=== PATIENT | female | born 1935 | race Caucasian/White ===

== ENCOUNTER 2016-04-01 09:06 | Inpatient (IN) | payer OTHER, MEDICARE ==
[2016-03-08 11:36] VITALS: BMI 28.0
--- NOTE | 2016-03-08 12:09 | PAT Medication Instructions ---
Service Date Mar 08, 2016. Current Home Medication List Acetaminophen (Tylenol Arthritis Ext Rel), 650 MG PO Q8H Albuterol (Proair Hfa), 2 PUFFS INH Q4 PRN for asthma Calcium Carbonate-Vitamin D (Oscal 500/200 D-3), 2 TABLETS PO QAM Cholecalciferol (Vitamin D-3), 1,000 UNIT PO QAM Cyanocobalamin (Vitamin B-12 1000 Mcg), 1,000 MCG PO QAM Levothyroxine Sodium (Levothyroxine Sodium), 1 TAB PO QAM Losartan Potassium (Cozaar), 25 MG PO QAM Metoprolol Tartrate (Metoprolol Tartrate), 25 MG PO BID Multiple Vitamin (Multivitamins), 1 CAP PO QAM Probiotic Product (Probiotic), 1 CAP PO QAM Psyllium (Metamucil Powder), 1 PACK PO DAILY Ranitidine (Zantac), 150 MG PO LUNCH Medication Instructions For Your Scheduled Surgery - Hold the following medications the morning of surgery: Calcium Carbonate-Vitamin D (Oscal 500/200 D-3), 2 TABLETS PO QAM Cholecalciferol (Vitamin D-3), 1,000 UNIT PO QAM Cyanocobalamin (Vitamin B-12 1000 Mcg), 1,000 MCG PO QAM Losartan Potassium (Cozaar), 25 MG PO QAM Multiple Vitamin (Multivitamins), 1 CAP PO QAM Probiotic Product (Probiotic), 1 CAP PO QAM Psyllium (Metamucil Powder), 1 PACK PO DAILY - Take the following medications the morning of surgery with a sip of water OTHERWISE NOTHING TO EAT OR DRINK AFTER MIDNIGHT: Acetaminophen (Tylenol Arthritis Ext Rel), 650 MG PO Q8H (may take if needed up to 4 hours prior to surgery) Albuterol (Proair Hfa), 2 PUFFS INH Q4 PRN for asthma (use if needed; BRING TO HOSPITAL) Metoprolol Tartrate (Metoprolol Tartrate), 25 MG PO BID Levothyroxine Sodium (Levothyroxine Sodium), 1 TAB PO QAM Ranitidine (Zantac), 150 MG PO LUNCH - Take the following medications as scheduled the night before surgery: Acetaminophen (Tylenol Arthritis Ext Rel), 650 MG PO Q8H Albuterol (Proair Hfa), 2 PUFFS INH Q4 PRN for asthma Metoprolol Tartrate (Metoprolol Tartrate), 25 MG PO BID If you have any questions please call us at [phone] (Gela Montalvo PA-C ) or [phone] or [phone]
[2016-03-08 12:51] LABS: URINE APPEARANCE CLEAR (CLEAR); URINE BILIRUBIN NEG (NEG); URINE COLOR YELLOW; URINE NITRITE NEG (NEG); UROBILINOGEN NEG (NEG)
[2016-03-08 12:52] LABS: MANUAL MICROSCOPIC REQUIRED? NO; REVIEW REQ? NO
[2016-03-08 13:08] LABS: PROTHROMBIN TIME (PATIENT) 10.3 SECONDS (9.0-12.0)
[2016-03-08 13:12] LABS: BASO % 0.6 %; BASO ABS # 0.03 K/uL (0-0.2); COMPLETE YES; EOS % 1.5 %; HEMATOCRIT 38.5 % (37-47); IG% 0.2 %; LYMPH % 26.7 %; LYMPH ABS # 1.44 K/uL (1.2-3.4); MEAN CELL VOLUME 89.7 fL (80-100); MEAN CORPUSCULAR HEMOGLOBIN 31.2 pg (25-34); MEAN CORPUSCULAR HGB CONC 34.8 g/dl (32-36); MEAN PLATELET VOLUME 10.7 fL (7.4-10.4); MONO % 8.7 %; NEUT % 62.3 %; PLATELET COUNT 226 K/uL (130-400); RED BLOOD COUNT 4.29 M/uL (4.2-5.4); WHITE BLOOD COUNT 5.39 K/uL (4.8-10.8)
[2016-03-08 13:35] LABS: CALCIUM 9.5 mg/dl (8.5-10.1); CREATININE 0.79 mg/dl (0.60-1.20); POTASSIUM 4.2 mmol/L (3.5-5.1)
--- NOTE | 2016-03-31 11:16 | HISTORY & PHYSICAL EXAMINATION ---
DATE OF ADMISSION: 04/01/2016 CHIEF COMPLAINT: Bilateral osteoarthritis of the knees. HISTORY OF PRESENT ILLNESS: Jennifer is a pleasant 80-year-old female who has been dealing with chronic bilateral knee pain for several years. She has had multiple injections but unfortunately they are not lasting. Her knee pain is severely affecting her daily activity. After failing years of conservative treatment, she has elected to undergo total knee arthroplasties. She wanted both knees done at the same time. I advised her extensively about the increased complication risk given her age and her medical status. She understands the increased risk but would still like to proceed with bilateral knee replacements. PAST MEDICAL HISTORY: Significant for problems with anesthesia, hypothyroidism, mental disorder and history of clots. SURGICAL HISTORY: Significant for bilateral shoulder arthroscopies. ALLERGIES: None. MEDICATIONS: Include albuterol 2 puffs as needed, Tylenol daily, calcium with vitamin D 2 tablets daily, vitamin D3 1000 units daily, vitamin B12 1000 mcg daily, glucosamine and chondroitin, Synthroid 88 mcg daily, Cozaar 25 mg daily, metoprolol 50 mg daily. FAMILY HISTORY: Noncontributory. SOCIAL HISTORY: She lives alone. She denies use of alcohol, tobacco or IV drug use. She is moderately active. REVIEW OF SYSTEMS: She complains of bilateral knee pain. All other pertinent review of systems are negative. PHYSICAL EXAMINATION: GENERAL: She is awake, alert and oriented x3. She is in no apparent distress. She is very pleasant. HEENT: Pupils equal, round and reactive to light. Extraocular motion intact. Oral mucosa is pink and moist. HEART: Regular rate per radial pulse. LUNGS: Fatoumata symmetrically bilaterally with no audible breath sounds. ABDOMEN: Soft, nontender, nondistended. MUSCULOSKELETAL: On physical examination of her knees, she ambulates independently. She has good range of motion from 0-125 degrees but a slight varus deformity. She has significant tenderness to palpation along the medial joint lines bilaterally. She has some crepitus through range of motion. No instability. Painless range of motion of her hip. X-rays do show she has advanced arthritis, mostly involving the medial compartment of both knees. IMPRESSION: Bilateral medial compartmental arthritis. PLAN: We will proceed with bilateral total knee arthroplasties. Postoperatively, she will be placed on Xarelto for DVT prophylaxis. [facility].
[2016-04-01] VITALS (9 sets, daily range): BP systolic 111–153; BP diastolic 61–85; PULSE 45–59; TEMP 36.3–36.7; O2SAT 97–100; Ht 152.4 cm; Wt 66.5 kg
[~2016-04-01] VITALS: Ht 152.4 cm; Wt 66.5 kg
[~2016-04-01 09:06] MED LIST: ACET1TAB84 PO; ACETAMINOPHEN 500 MG TAB PO SCH; ALBU1AER9 INH; ATROPINE SULFATE 0.1 MG/ML 5ML SYR IV PRN; BUPIVACAINE 0.25% 30 ML VIAL ONE; BUPIVACAINE 0.5 % 5 MG/1 ML PF 10ML VIAL ONE; CALC200T PO; CHOL1TAB2 PO; CYAN10004 PO; EpHEDrine SULFATE INJ 50 MG/ML AMP IV PRN; FAMOTIDINE 20 MG TAB PO SCH; FENTANYL CITRATE INJ 50 MCG/1 ML 2 ML VIAL IV PRN; GABAPENTIN 300 MG CAP PO SCH; LACTATED RINGER'S 1000ML 1,000 ML IV SCH; LACTATED RINGER'S 1000ML IV SCH; LEVO88TA3 PO; LOSA1TAB PO; LPR50X PO; MISCCAP80 PO; MULTCAP42 PO; ONDANSETRON INJ 2 MG/ML 2 ML VIAL IV PRN; PSYL55.43 PO; ROPIVACAINE 5MG/ML 30 ML 150 MG, BUPIVACAINE/EPINEPHR 0.5% MPF 30 ML, KETOROLAC TROMETH... INFIL SCH; VANCOMYCIN 1GM/270ML NSS 270 ML IV SCH; ZNTT/150 PO; [UNRECOGNIZED DRUG - REMARK] SCH
[2016-04-01] MEDS ORDERED: MIDAZOLAM HCL 1 MG/ML 2ML VIAL ONE (09:38)
--- NOTE | 2016-04-01 10:43 | History & Physical Bridge Note ---
H&P Re-Evaluation Bridge Note: I have examined the patient, reviewed the History & Physical and in the interval since the performance of the History & Physical I have noted the following changes of clinical significance: No changes noted
[2016-04-01] MEDS: TRANEXAMIC ACID INJ 1,000 MG in SODIUM CHLORIDE 0.9% 100ML 100 ML IV SCH ×2 (10:44→21:40)
[2016-04-01] MEDS ORDERED: ORTHO JOINT ANESTHETIC ONE (10:50)
[2016-04-01] MEDS ORDERED: BACITRACIN 50000 UNIT VIAL ONE ×2 (10:50→12:07)
[2016-04-01] MEDS ORDERED: FENTANYL CITRATE INJ 50 MCG/1 ML 2 ML VIAL ONE ×3 (11:24→14:39)
[2016-04-01] MEDS ORDERED: PROPOFOL IV EMULSION 10 MG/ML 20 ML VIAL IV ONE (12:51)
[2016-04-01] MEDS ORDERED: ONDANSETRON INJ 2 MG/ML 2 ML VIAL ONE (12:52)
[2016-04-01] MEDS ORDERED: ROCURONIUM BROMIDE 10 MG/ML 5 ML VIAL ONE (12:52)
[2016-04-01] MEDS ORDERED: DEXAMETHASONE SOD INJ 4 MG/ML VIAL ONE (12:52)
[2016-04-01] MEDS ORDERED: SUCCINYLCHOLINE 100MG/5ML SYR IV ONE (12:52)
[2016-04-01] MEDS ORDERED: LIDOCAINE HCL 2% 2 ML VIAL (20MG/ML) ONE (12:52)
--- NOTE | 2016-04-01 14:40 | [facility] Post Operative Brief Note ---
Immediate Operative Summary Operative Date Apr 01, 2016. Pre-Operative Diagnosis Bilateral Medial Compartmental Arthritis Post-Operative Diagnosis Bilateral Medial Compartmental Arthritis Procedure(s) Performed Bilateral Total Knee Arthroplasty Surgeon Dr. Landrum Porter Sample Case Surgeon(s) GÉNESIS Andino Estimated Blood Loss 10 ml Findings as above Specimens A. Right Knee Bone and Tissue B. Left Knee Bone and Tissue Complication(s) None Disposition Recovery Room / PACU
[2016-04-01] MEDS ORDERED: HYDROmorphone INJ 2 MG/ML SYR/VIAL IV PRN (14:45)
[2016-04-01] MEDS ORDERED: CEFAZOLIN IV 2,000 MG in DEXTROSE 5% 50ML 50 ML IV SCH (14:45)
[2016-04-01] MEDS ORDERED: BISACODYL 10 MG SUPP PR PRN (14:45)
[2016-04-01] MEDS ORDERED: ONDANSETRON INJ 2 MG/ML 2 ML VIAL IV PRN (14:45)
[2016-04-01] MEDS ORDERED: HYDROmorphone HCL 2 MG TAB PO PRN (14:45)
[2016-04-01] MEDS ORDERED: ALBUTEROL HFA 8 GM INHALER INH PRN (14:45)
[2016-04-01] MEDS ORDERED: MAGNESIUM HYDROXIDE SUSP 30 ML UDC PO PRN (14:45)
[2016-04-01] MEDS ORDERED: METOCLOPRAMIDE HCL INJ 5 MG/ML 2 ML VIAL IV PRN (14:45)
[2016-04-01] MEDS ORDERED: SOD PHOSPHATE/SOD BIPHOSPHATE ENEMA 132 ML BTL PR PRN (14:45)
--- NOTE | 2016-04-01 15:12 | DIAGNOSTIC IMAGING REPORT ---
TWO VIEWS LEFT KNEE CLINICAL HISTORY: Postoperative examination. FINDINGS: AP and crosstable lateral portable views of the left knee are obtained. A left knee arthroplasty is in near anatomic alignment. There has been undersurface remodeling of the patella. No acute fracture is seen. There are expected postoperative changes around the knee including a surgical drain, soft tissue edema, and subcutaneous gas. IMPRESSION: Expected postoperative changes status post left knee arthroplasty. No acute fracture is seen. Electronically signed by: Rk López M.D. 04/01/2016 3:11 PM Dictated Date/Time: 04/01/2016 3:11 PM
--- NOTE | 2016-04-01 15:15 | DIAGNOSTIC IMAGING REPORT ---
RIGHT KNEE 1 OR 2 VIEWS ROUTINE CLINICAL HISTORY: AP/LATERAL IN PACU RIGHT KNEE Right pain. Postoperative evaluation COMPARISON: None. DISCUSSION: Anatomic alignment status post total right knee replacement. Good contact between prosthetic and underlying bone. Surgical drains in position. Expected soft tissue postoperative change IMPRESSION: Anatomic alignment status post total right knee replacement Electronically signed by: Nile Cardona M.D. 04/01/2016 3:14 PM Dictated Date/Time: 04/01/2016 3:13 PM
--- NOTE | 2016-04-01 15:27 | Anesthesiology Progress Note ---
Anesthesia Post Op Note Date & Time Apr 01, 2016 at 15:26 Vital Signs Pain Intensity: 0 Vital Signs Past 12 Hours Date Time Temp Pulse Resp B/P Pulse Ox O2 Delivery O2 Flow Rate FiO2 04/01/16 15:19 45 14 98 04/01/16 15:19 45 14 04/01/16 15:18 136/71 04/01/16 15:17 36.6 49 16 136/71 98 Nasal Cannula 2 04/01/16 15:14 54 11 04/01/16 15:14 56 11 98 04/01/16 15:13 161/72 04/01/16 15:12 59 17 98 04/01/16 15:12 59 17 04/01/16 15:08 147/63 04/01/16 15:07 42 4 04/01/16 15:07 42 4 97 04/01/16 15:03 137/67 04/01/16 15:02 46 4 99 04/01/16 15:02 46 4 04/01/16 14:58 145/66 04/01/16 14:57 47 9 100 04/01/16 14:57 47 9 04/01/16 14:53 148/69 04/01/16 14:52 50 14 100 04/01/16 14:52 50 14 04/01/16 14:50 150/63 04/01/16 14:47 47 14 04/01/16 14:47 47 14 100 04/01/16 14:44 132/ 04/01/16 14:42 47 13 100 04/01/16 14:42 47 13 04/01/16 14:38 140/55 04/01/16 14:37 52 15 04/01/16 14:37 50 15 100 04/01/16 14:32 57 15 04/01/16 14:32 57 15 100 04/01/16 14:32 36.2 61 12 133/81 100 Mask 10 04/01/16 09:39 36.4 51 18 151/65 97 Room Air Notes Mental Status: alert / awake / arousable, participated in evaluation Pt Amnestic to Procedure: Yes Nausea / Vomiting: adequately controlled Pain: adequately controlled Airway Patency, RR, SpO2: stable & adequate BP & HR: stable & adequate Hydration State: stable & adequate Anesthetic Complications: no major complications apparent
--- NOTE | 2016-04-01 15:35 | OPERATIVE REPORT ---
DATE OF OPERATION: 04/01/2016 PREOPERATIVE DIAGNOSIS: Bilateral osteoarthritis of knees. POSTOPERATIVE DIAGNOSIS: Same. PROCEDURE: Bilateral total knee arthroplasty. SURGEON: Dr. Jim Landrum. TOOLS DEVELOPER: David Gonzalez PA-C, whose assistance was necessary for positioning the leg and helping with retraction. ANESTHESIA: General with bilateral adductor nerve block. COMPLICATIONS: None. CONDITION: Stable to PACU. IMPLANTS USED: For left total knee - a 62.5 left femur, a 67 tibia, a 31.8 patella and a 14 PS Plus poly. This was a [employer] V[employer] total knee. The right knee was a 62.5 femur, a 67 tibia, a 31 x 8 patella and a 10 mm posterior stabilized bearing. This was a [employer] Vanguard total knee. INDICATIONS: Jennifer is a pleasant 80-year-old female who presented to my office with complaints of chronic bilateral knee pain and that point was severely affecting her daily activities. She is fairly healthy; however, given her age, we talked about the complication, risks of bilateral total knee replacements. She is fairly persistent that she accepted the risks and she would like to have both done. I thought it was reasonable to proceed with bilateral total knee arthroplasties. OPERATION AND FINDINGS: On 04/01/2016 she arrived at [facility] for the above procedure. She was seen in the preoperative holding area and the operative extremity was identified and signed. She was given bilateral adductor nerve blocks, taken back to the operating room, laid on the table in supine position and put under general anesthesia. Both knees were prepped and draped in sterile fashion. Time-out was done and the patient and operative extremity was properly identified. The right knee was done first. An incision was made directly over the patella, dissection was taken down through the fascia and a medial parapatellar approach was used. The fat pad was excised, medial retinaculum was released and the knee was flexed. A drill was sent down the center of the femoral canal followed by an intramedullary guide, off that guide a distal femoral cutting block was placed and a 9 mm was resected off the distal femur in 5 degrees of valgus. The posterior referencing guide was used to measure the distal femur and it measured to be a size 62.5. Two drill holes were placed in 3 degrees of external rotation and a 4-in-1 cutting block was impacted into place. Anterior, posterior and chamfer cuts were then made. The box-cutting guide was attached and the box was resected for the posterior-stabilizing component. A drill was sent down the center of the tibial canal followed by an intramedullary kemal. Off the kemal, a proximal tibial resection guide was placed and 2 mm was resected off the low tibial side. The tibia measured to be a size 67, it was placed in the appropriate rotation, drilled and then punched. Trial implants were placed along with a size 10 posterior stabilized bearing, the knee was brought through a full range of motion and felt to be stable. The patella was then everted, 8 mm was resected off the posterior patella and the patella measured to be a size 31 and 3 peg holes were then drilled and trial patella was placed. The knee was brought through a full range of motion and felt to be stable. Trial components were removed, the femoral, tibial, and patellar components were then cemented in place with Palacos-G cement. Once cement had hardened, several different polyethylene trials were used and a size 10 posterior stabilized bearing seemed to be the best fit. The final bearing was snapped into place and the anterior bar was locked. The surrounding soft tissues were then injected with 50 mL of an orthopedic pain control cocktail. The knee was irrigated with 3 liters of normal saline solution with bacitracin. Two drains were placed. The extensor mechanism was closed with #2 Vicryl in the superior medial quadrant and #1 Vicryl on the distal lateral ends. The skin was closed with 2-0 Vicryl, 3-0 V-Loc suture and a Prineo dressing. Tourniquet was deflated, attention was turned to the contralateral side. The left knee was done in the same fashion as the right knee. There was a little bit more varus of the left knee and slightly more was resected off the tibial plateau. A size 14 PS Plus bearing seemed to be the best fit on the left side. One stab bearing was placed and the knee was brought through a full range of motion and felt to be stable and was closed in standard fashion. Jennifer was then extubated, transferred to [facility] and taken to the postanesthesia care unit in stable condition. She tolerated the procedure well. I attest to the content of the Intraoperative Record and any orders documented therein. Any exceptio ns are noted below.
[2016-04-01] MEDS: SODIUM CHLORIDE 0.9% 1000ML 1,000 ML IV SCH ×2 (17:37→23:08)
[2016-04-01] MEDS: KETOROLAC TROMETHAMINE 15 MG/ML VIAL IV. SCH ×2 (17:37→23:08)
[2016-04-01] MEDS: METOPROLOL TARTRATE 25 MG TAB PO SCH (21:00)
[2016-04-01] MEDS: ACETAMINOPHEN IV 1,000 MG in EMPTY BAG 0 ML IV SCH (21:20)
[2016-04-01] MEDS: DOCUSATE SODIUM 100 MG CAP PO SCH (21:24)
[2016-04-01] MEDS: SENNA 8.6 MG TAB PO SCH (21:25)
[2016-04-01] MEDS ORDERED: VANCOMYCIN INJ 1,000 MG in SODIUM CHLORIDE 0.9% 250ML 250 ML IV ONE (22:00)
[2016-04-02] VITALS (10 sets, daily range): BP systolic 64–128; BP diastolic 39–75; PULSE 49–80; TEMP 36.5–36.9; O2SAT 94–99
[2016-04-02] MEDS: ACETAMINOPHEN IV 1,000 MG in EMPTY BAG 0 ML IV SCH ×3 (05:30→21:44)
[2016-04-02] MEDS: KETOROLAC TROMETHAMINE 15 MG/ML VIAL IV. SCH ×3 (05:30→18:48)
[2016-04-02] MEDS: LEVOTHYROXINE 88 MCG TAB PO SCH (05:30)
[2016-04-02 06:51] LABS: HEMATOCRIT 31.3 % (37-47); MEAN CELL VOLUME 90.2 fL (80-100); MEAN CORPUSCULAR HEMOGLOBIN 30.8 pg (25-34); MEAN CORPUSCULAR HGB CONC 34.2 g/dl (32-36); MEAN PLATELET VOLUME 10.9 fL (7.4-10.4); PLATELET COUNT 162 K/uL (130-400); RED BLOOD COUNT 3.47 M/uL (4.2-5.4); WHITE BLOOD COUNT 8.43 K/uL (4.8-10.8)
[2016-04-02 07:19] LABS: BUN/CREATININE RATIO 11.4 (10-20); CALCIUM 7.7 mg/dl (8.5-10.1); CREATININE 0.78 mg/dl (0.60-1.20); POTASSIUM 4.1 mmol/L (3.5-5.1)
[2016-04-02] MEDS: PSYLLIUM 58.6% PWD PACK S\\F PO SCH (09:00)
[2016-04-02] MEDS: METOPROLOL TARTRATE 25 MG TAB PO SCH ×2 (09:00→21:43)
[2016-04-02] MEDS: MULTIVITAMIN TAB PO SCH (09:17)
[2016-04-02] MEDS: CYANOCOBALAMIN 500 MCG TAB (VIT B-12) PO SCH (09:18)
[2016-04-02] MEDS: DOCUSATE SODIUM 100 MG CAP PO SCH ×2 (09:18→21:44)
[2016-04-02] MEDS: CHOLECALCIFEROL 1000 INTER.UNIT TAB PO SCH (09:19)
[2016-04-02] MEDS: LOSARTAN POTASSIUM 25 MG TAB PO SCH (09:19)
[2016-04-02] MEDS: PANTOprazole SOD 40 MG TAB PO SCH (09:19)
--- NOTE | 2016-04-02 09:27 | PROGRESS NOTE ---
DATE: 04/02/2016 DATE: 04/02/2016. CHIEF COMPLAINT: Status post bilateral total knee arthroplasties. PROGRESS: Jennifer was seen and examined at bedside today. Overall, she is doing extremely well. She says she has very little pain in her knees. She is sitting up at bedside eating breakfast. She has no complaints. PHYSICAL EXAMINATION OF BOTH KNEES: The dressings are clean and dry. She has dorsiflexion and plantarflexion of both ankles and the drain is to suction. Her vital signs are all stable on room air and she is voiding on her own. The drains have not put out too much. LABORATORY DATA: She has an H\T\H today of 10.7 and 31.3. X-rays of both knees show the prosthesis to be in anatomic alignment without any evidence of fracture, dislocation or loosening. IMPRESSION: Status post bilateral total knee arthroplasty postop day #1. PLAN: At this point, she is doing very well. She will be seen by physical therapy and be up and ambulating and working with range of motion. We are planning to discharge to [facility] either tomorrow or Monday.
[2016-04-02] MEDS: SODIUM CHLORIDE 0.9% 1000ML 1,000 ML IV SCH (09:28)
[2016-04-02] MEDS: RIVAROXABAN 10 MG TAB PO SCH (16:15)
[2016-04-02] MEDS: SENNA 8.6 MG TAB PO SCH (21:44)
[2016-04-03 00:20] VITALS: BP 112/70; PULSE 71; TEMP 36.8; O2SAT 94
[2016-04-03] MEDS: KETOROLAC TROMETHAMINE 15 MG/ML VIAL IV. SCH ×3 (00:28→12:41)
[2016-04-03] MEDS: ACETAMINOPHEN IV 1,000 MG in EMPTY BAG 0 ML IV SCH ×3 (06:08→21:39)
[2016-04-03] MEDS: LEVOTHYROXINE 88 MCG TAB PO SCH (06:09)
[2016-04-03 07:33] VITALS: BP 98/59; PULSE 68; TEMP 36.5; O2SAT 96
[2016-04-03] MEDS: DOCUSATE SODIUM 100 MG CAP PO SCH ×2 (09:00→20:40)
[2016-04-03] MEDS: LOSARTAN POTASSIUM 25 MG TAB PO SCH (09:00)
[2016-04-03] MEDS: PSYLLIUM 58.6% PWD PACK S\\F PO SCH (09:00)
[2016-04-03] MEDS: METOPROLOL TARTRATE 25 MG TAB PO SCH ×2 (09:00→20:42)
[2016-04-03] MEDS: PANTOprazole SOD 40 MG TAB PO SCH (09:15)
[2016-04-03] MEDS: MULTIVITAMIN TAB PO SCH (09:15)
[2016-04-03] MEDS: CYANOCOBALAMIN 500 MCG TAB (VIT B-12) PO SCH (09:16)
[2016-04-03] MEDS: CHOLECALCIFEROL 1000 INTER.UNIT TAB PO SCH (09:16)
[2016-04-03] MEDS ORDERED: XRL10 PO (10:09)
[2016-04-03] MEDS ORDERED: DLDI IV (10:09)
--- NOTE | 2016-04-03 10:11 | Discharge Instructions ---
Discharge Instructions Admission Reason for Admission: Bilateral Knee Gonarthrosis Discharge Discharge Diagnosis / Problem: Bi-lateral Total Knees Discharge Goals Goal(s): Decrease discomfort, Improve function Activity Recommendations Activity Limitations: resume your previous activity Shower/Bathe: may shower/bathe in 3 days . Instructions / Follow-Up Instructions / Follow-Up may shower on Monday, leave glue dressings in place Current Hospital Diet Patient's current hospital diet: Regular Diet Discharge Diet Recommended Diet: Regular Diet Procedures Procedures Performed: Bilateral Total Knee Arthroplasty Pending Studies Studies pending at discharge: no Medical Emergencies . Who to Call and When: Medical Emergencies: If at any time you feel your situation is an emergency, please call 911 immediately. . Non-Emergent Contact Non-Emergency issues call your: Surgeon Call Non-Emergent contact if: wound has increased drainage, wound has increased redness . "Provider Documentation" section prepared by Jim Landrum. VTE Core Measure Inpt VTE Proph given/why not?: Other Anticoagulation (Xerelto 10 mg daily)
--- NOTE | 2016-04-03 11:51 | PROGRESS NOTE ---
DATE: 04/03/2016 CHIEF COMPLAINT: Status post bilateral total knee arthroplasty postop day #2. PROGRESS: Jennifer was seen and examined at bedside today. Overall, she is doing very well. She is having very little pain in her knees. She was having some bowel issues yesterday with some constipation. She received multiple laxatives and she has had multiple bowel movements since. She also had a bout of hypotension yesterday but that was quickly resolved. PHYSICAL EXAMINATION: The dressings were changed and drain was pulled on both knees. The incisions were clean and dry without any evidence of infection. She is neurovascularly intact. IMPRESSION: Status post bilateral total knee arthroplasties. PLAN: At this point, she is doing fairly well. She will continue to get therapy today and will hope that her bowels calm down a little bit. She is not having much pain in her knees. I will plan to send her to [facility] tomorrow.
[2016-04-03] MEDS: RIVAROXABAN 10 MG TAB PO SCH (15:31)
[2016-04-03 15:34] VITALS: BP 99/61; PULSE 79; TEMP 36.4; O2SAT 99
[2016-04-03 20:40] VITALS: BP 124/72; PULSE 85
[2016-04-03] MEDS: SENNA 8.6 MG TAB PO SCH (20:40)
[2016-04-03 23:25] VITALS: BP 105/55; PULSE 82; TEMP 36.6; O2SAT 94
[2016-04-04] MEDS: LEVOTHYROXINE 88 MCG TAB PO SCH ×2 (05:23→14:49)
[2016-04-04] MEDS: ACETAMINOPHEN IV 1,000 MG in EMPTY BAG 0 ML IV SCH ×3 (05:24→13:54)
[2016-04-04 06:47] VITALS: BP 121/73; PULSE 80; TEMP 36.6; O2SAT 94
[2016-04-04] MEDS ORDERED: DLD2 PO (07:30)
--- NOTE | 2016-04-04 07:39 | PROGRESS NOTE ---
DATE: 04/04/2016 CHIEF COMPLAINT: Status post bilateral total knee arthroplasty postop day #3. PLAN: Jennifer was seen and examined at bedside today. She was sitting up in a chair and she was relaxed and she was not having much pain in her knee. She has been doing very well throughout this process and had no acute events overnight. PHYSICAL EXAMINATION: KNEES: She is sitting with the knee flexed to 90 degrees. The incisions are clean and dry. The dressing has been removed, the drains have been pulled. She has active dorsiflexion and plantarflexion of her ankle. Sensation is intact throughout. VITAL SIGNS: All stable on room air. She is voiding on her own and has had multiple bowel movements. IMPRESSION: Status post bilateral total knee arthroplasties, postop day #3. PLAN: At this point, she is doing very well. She will be discharged to [facility] later this morning. We will keep her on Xarelto for DVT prophylaxis.
--- NOTE | 2016-04-04 07:50 | DISCHARGE SUMMARY ---
DISCHARGE DIAGNOSIS: Primary osteoarthritis of bilateral knees. PROCEDURE: Bilateral total knee arthroplasty on 01/29/[address] Jim Landrum. DISCHARGE INSTRUCTIONS: 1. Dilaudid 2 mg p.o. q. 2 hours as needed. 2. Xarelto 10 mg daily. 3. Tylenol 650 mg every 8 hours. 4. ProAir 2 puffs q. 4 hours as needed. 5. Vitamin D3 1000 units daily. 6. Vitamin B12 1000 mcg daily. 7. Synthroid 88 mcg daily. 8. Cozaar 25 mg daily. 9. Metoprolol 25 mg twice a day. 10. Probiotic. 11. Zantac 150 mg at lunch. 12. Daily multivitamin. 13. May shower starting tomorrow. 14. Follow up with Dr. Landrum in 2 weeks. 15. Call the office of Dr. Landrum with any questions or concerns. HOSPITAL COURSE: Jennifer is a pleasant 80-year-old female who presented to my office with bilateral knee pain. X-rays and clinical examination were diagnostic for primary osteoarthritis of the bilateral knees. After failing conservative treatment, she wanted to undergo bilateral total knee arthroplasties. Extensive discussion was done considering her age and the bilateral knee replacements, but she wanted to proceed. On 04/01/2016 she arrived at [facility] for the above procedure. She was seen in the preoperative holding area and the operative extremity was identified and signed. She was given a preoperative antibiotic, taken back to the operating room, laid on the table in supine position and put under general anesthesia. She had bilateral adductor nerve blocks. She underwent bilateral knee replacements without complications. She was then placed in compressive dressings and discharged to general orthopedic floors. Her hospital course was uneventful. On postop day #1, her H\T\H was stable at 10.7 and 31.3. She worked very well with physical therapy, was having very little pain. On postop day #2, she continued to do well. She was a little bit lightheaded and she spent a few minutes in Trendelenburg and that relieved that. She continued to work well with physical therapy, had very little pain in her knees. On postop day #3, the dressings had been changed and drains have been pulled. She continued to do well with therapy and she was subsequently discharged to [facility] with the above instructions.
--- NOTE | 2016-04-04 07:56 | Anesthesiology Progress Note ---
Anesthesia Post Op Note Date & Time Apr 04, 2016 at 07:56 Vital Signs Pain Intensity: 0.0 Vital Signs Past 12 Hours Date Time Temp Pulse Resp B/P Pulse Ox O2 Delivery O2 Flow Rate FiO2 04/04/16 06:47 36.6 80 16 121/73 94 Room Air 04/03/16 23:25 36.6 82 16 105/55 94 Room Air 04/03/16 20:40 85 124/72 Notes Mental Status: alert / awake / arousable, participated in evaluation Pt Amnestic to Procedure: Yes Nausea / Vomiting: adequately controlled Pain: adequately controlled Airway Patency, RR, SpO2: stable & adequate BP & HR: stable & adequate Hydration State: stable & adequate Anesthetic Complications: no major complications apparent
[2016-04-04 08:09] VITALS: BP 124/80; PULSE 86; TEMP 36.5; O2SAT 98
[2016-04-04] MEDS: DOCUSATE SODIUM 100 MG CAP PO SCH (08:23)
[2016-04-04] MEDS: LOSARTAN POTASSIUM 25 MG TAB PO SCH (08:23)
[2016-04-04] MEDS: PSYLLIUM 58.6% PWD PACK S\\F PO SCH (08:24)
[2016-04-04] MEDS: METOPROLOL TARTRATE 25 MG TAB PO SCH (08:24)
[2016-04-04] MEDS: MULTIVITAMIN TAB PO SCH (08:25)
[2016-04-04] MEDS: PANTOprazole SOD 40 MG TAB PO SCH (08:26)
[2016-04-04] MEDS: CYANOCOBALAMIN 500 MCG TAB (VIT B-12) PO SCH (08:27)
[2016-04-04] MEDS: CHOLECALCIFEROL 1000 INTER.UNIT TAB PO SCH (08:28)
[2016-04-04 08:52] VITALS: O2SAT 98
[2016-04-04 11:23] VITALS: BP 124/80; PULSE 86; TEMP 36.5; O2SAT 98
== END 2016-04-04 16:25 | DRG 462 ==
LOC: ENRESERVTM → ENRESERVDT → C.ACU 09:06 → C.3E 10:40
PROVIDERS: ADMIT Orthopaedic Surgery; ATTEND Orthopaedic Surgery
PROC: 0SRD0J9 Replacement of Left Knee Joint with Synthetic Substitute, Cemented, Open Approach (ICD-10-PCS; principal; 2016-04-01 10:40)
PROC: 0SRC0J9 Replacement of Right Knee Joint with Synthetic Substitute, Cemented, Open Approach (ICD-10-PCS; principal; 2016-04-01 10:40)
DX: M17.0 Bilateral primary osteoarthritis of knee (principal); R42 Dizziness and giddiness; K59.00 Constipation, unspecified; I10 Essential (primary) hypertension; J45.909 Unspecified asthma, uncomplicated; E03.9 Hypothyroidism, unspecified; K21.9 Gastro-esophageal reflux disease without esophagitis; Z86.718 Personal history of other venous thrombosis and embolism; Z79.899 Other long term (current) drug therapy

== ENCOUNTER → 2016-07-21 | Outpatient (CLI) | payer OTHER, MEDICARE ==
[~2016-07-21] MED LIST changes: -ACETAMINOPHEN 500 MG TAB PO SCH; -ATROPINE SULFATE 0.1 MG/ML 5ML SYR IV PRN; -BUPIVACAINE 0.25% 30 ML VIAL ONE; -BUPIVACAINE 0.5 % 5 MG/1 ML PF 10ML VIAL ONE; -EpHEDrine SULFATE INJ 50 MG/ML AMP IV PRN; -FAMOTIDINE 20 MG TAB PO SCH; -FENTANYL CITRATE INJ 50 MCG/1 ML 2 ML VIAL IV PRN; -GABAPENTIN 300 MG CAP PO SCH; +HYDR2TAB3 PO; -LACTATED RINGER'S 1000ML 1,000 ML IV SCH; -LACTATED RINGER'S 1000ML IV SCH; -ONDANSETRON INJ 2 MG/ML 2 ML VIAL IV PRN; -ROPIVACAINE 5MG/ML 30 ML 150 MG, BUPIVACAINE/EPINEPHR 0.5% MPF 30 ML, KETOROLAC TROMETH... INFIL SCH; -VANCOMYCIN 1GM/270ML NSS 270 ML IV SCH; +XRL10 PO; -[UNRECOGNIZED DRUG - REMARK] SCH
--- NOTE | 2016-07-21 16:17 | MAMMOGRAPHY REPORT ---
BILATERAL DIGITAL SCREENING MAMMOGRAM WITH CAD: 07/21/2016 CLINICAL HISTORY: Routine screening. Patient has no complaints. TECHNIQUE: Current study was also evaluated with a Computer Aided Detection (CAD) system. Bilateral CC and MLO and right XCCL views were obtained. COMPARISON: Comparison is made to exams dated: 07/21/2015 mammogram, 07/17/2014 mammogram, 07/16/2013 m ammogram, 07/11/2012 mammogram, 07/11/2011 mammogram, and 07/07/2010 mammogram - [facility] enter. BREAST COMPOSITION: The tissue of both breasts is heterogeneously dense, which may obscure small mas ses. FINDINGS: No suspicious masses, calcifications, or areas of architectural distortion are noted in ei ther breast. There has been no significant interval change compared to prior exams. IMPRESSION: ACR BI-RADS CATEGORY 1: NEGATIVE There is no mammographic evidence of malignancy. A 1 year screening mammogram is recommended. The pa tient will receive written notification of the results. Approximately 10% of breast cancers are not detected with mammography. A negative mammographic report should not delay biopsy if a clinically suggestive mass is present. Keysha Sanford M.D. /:07/21/2016 16:08:21 Development System Efficiency Manager: Ann BURCIAGA(Vickie)(Renetta)([place]), [facility] letter sent: Normal 1/2 BI-RADS Code: ACR BI-RADS Category 1: Negative
== END | disposition home or self-care (01) ==
LOC: C.MAMM 14:01
PROVIDERS: ATTEND Obstetrics & Gynecology
DX: Z12.31 Encounter for screening mammogram for malignant neoplasm of breast (principal)